=== PATIENT | female | born 1940 | race African-American/Black ===

== ENCOUNTER 2021-02-11 10:50 | Emergency (ER) | payer MEDICARE, OTHER ==
[2021-02-11] MEDS ORDERED: CYCLOBENZAPRINE10 MG PO (15:16)
[2021-02-11] MEDS ORDERED: PREDNISONE 20MG20 MG PO (15:16)
== END 2021-02-11 15:25 | disposition home or self-care (01) ==
LOC: FER 10:50
DX: M54.31 Sciatica, right side (principal); I10 Essential (primary) hypertension; Z88.1 Allergy status to other antibiotic agents; Z88.2 Allergy status to sulfonamides
CPT/HCPCS: 93971; J1100